=== PATIENT | female | born 1985 ===

== ENCOUNTER 2016-09-09 10:13 | Emergency (ER) | payer OTHER ==
[~2016-09-09] VITALS: Ht 160 cm; Wt 90.7 kg
[2016-09-09 11:34] LABS: ABSOLUTE BASOPHIL COUNT 0 /CUMM (0.0-0.2); ABSOLUTE EOSINOPHIL COUNT 0 /CUMM (0.0-0.7); ABSOLUTE GRANULOCYTE CT 4.7 /CUMM (1.4-6.5); ABSOLUTE LYMPH COUNT 1.4 /CUMM (1.2-3.4); ABSOLUTE MONOCYTE COUNT 0.3 /CUMM (0.10-0.60); BASOPHIL % 0.2 % (0.0-2.0); EOSINOPHIL % 0.7 % (0-5); GRANULOCYTE % 73.3 % (42.2-75.2); HEMATOCRIT 35.5 % (37-47); MEAN PLATELET VOLUME 8.3 FL (7.4-10.4); PLATELET COUNT 216 /CUMM (130-400); RBC DISTRIBUTION WIDTH 13.1 % (11.5-14.5); RED BLOOD CELL CT 3.78 /CUMM (4.20-5.40); WHITE BLOOD CELL COUNT 6.5 /CUMM (4.8-10.8)
--- NOTE | 2016-09-09 11:34 | ED GENERAL ADULT ---
History of Present Illness General Chief Complaint: Nausea, Vomiting, Diarrhea Stated Complaint: DIARRHEA X3 DAYS, 7 MONTHS PREG Source: patient Exam Limitations: no limitations Reconcile Medications Biotin (Unknown Strength) TABLET (Unknown Dose) PO DAILY SUPPLEMENT (Reported ) Cholecalciferol (Vitamin D3) 1,000 UNIT TABLET 1 TAB PO DAILY VITAMIN SUPPORT (Reported) Cyanocobalamin (Vitamin B-12) 1,000 MCG TABLET 1 TAB PO DAILY VITAMIN SUPPORT (Reported) Ondansetron (Zofran Odt) 4 MG TAB.RAPDIS 1 TAB PO Q6 PRN NAUSEA Vit No.130/Iron/FA ( Tablet) 27 MG IRON-800 MCG TABLET 1 TAB PO DAILY VITAMIN SUPPORT (Reported) Triage Note: PT TO ED C/O N/V X 3 DAYS. STARTED WITH DIARRHEA LAST NIGHT. PT IS 27 WEEKS . . DENIES ABD PAIN. OBGYN IS ROZINA WHO ADVISED PT TO COME TO ED FOR IVF AND FLU SWAB. PT DENIES VAGINAL BLEEDING/DISCHARGE. Triage Nurses Notes Reviewed? yes : No Patient currently breastfeeds: No HPI: This is a 31-year-old female who comes in for chief complaint of nausea vomiting and diarrhea. Note that patient is 27 weeks at this time. Last follow up with OBG was Aug 11, 2016 and she states that no abnormalitie were noted. She states that she is in her usual health until about 3 days ago. She had 3-4 episodes of vomiting and nausea. Yesterday, patient stated she also started having diarrhea. She describes it as profuse and watery at least 3-4 bowel movements last night. This a.m. she resumed vomiting. Denies any vaginal bleeding, or contractions. Patient denies any exotic injections, recent travel, smoking, drinking, or drug abuse. 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 Denies any other illnesses. Denies shortness of breath, chest pain, abdominal pain, or change in bladder or bowel movements. Sensitivity spoke with Dr. Handy, her DOG WALKER doctor, and he requested that she come in for further evaluation. (APRIL GUALLPA,MADHU) Vital Signs & Intake/Output Vital Signs & Intake/Output Vital Signs Date Time Temp Pulse Resp B/P B/P Pulse O2 O2 Flow FiO2 Mean Ox Delivery Rate 09/09 1223 97.9 80 16 103/60 98 Room Air 09/09 1019 98.1 95 20 117/74 98 Room Air Allergies Coded Allergies: venom-honey bee (Severe, SWELLING 09/09/16) orange (Intermediate, HIVES 09/09/16) tomato (Intermediate, HIVES 09/09/16) latex (RASH 09/09/16) Onset: Abrupt Duration: day(s): (3) Timing: multiple episodes today Injury Environment: home Severity: mild, moderate Associated Symptoms: n/v/d (STEFANI BEY MD) Past History Travel History Traveled to [place] past 21 day No Medical History Any Pertinent Medical History? none Surgical History Surgical History: none Psychosocial History What is your primary language Bolivian Tobacco Use: Never used ETOH Use: denies use Illicit Drug Use: denies illicit drug use Family History Hx Contributory? No Employment History Employment Employed (MADHU CHEN MD) Review of Systems Review of Systems Constitutional: Denies: chills, fever, weakness. EENTM: Reports: no symptoms. Respiratory: Denies: cough, short of breath, sputum production. Cardiovascular: Denies: chest pain, palpitations. GI: Reports: diarrhea, nausea, vomiting. Denies: abdominal pain, constipation, melena, bloody stool. Genitourinary: Denies: discharge, frequency, hesitation, pain. Musculoskeletal: Reports: no symptoms. Skin: Reports: no symptoms. (MADHU CHEN MD) Review of Systems Hematologic/Endocrine: Denies: bruising, bleeding, polyuria, polydipsia. Immunologic/Allergic: Denies: splenectomy. (STEFANI BEY MD) Physical Exam Physical Exam General Appearance: well developed/nourished, no apparent distress, alert, awake Head: atraumatic, normal appearance Eyes: Bilateral: normal appearance, PERRL, EOMI. Neck: normal inspection Respiratory: normal breath sounds, chest non-tender, no respiratory distress, quiet respiration, lungs clear Cardiovascular: regular rate/rhythm Gastrointestinal: soft, non-tender Back: normal inspection, normal range of motion Extremities: normal inspection Core Measures ACS in differential dx? No CVA/TIA Diagnosis: No Severe Sepsis Present: No Septic Shock Present: No (MADHU CHEN MD) Physical Exam Ears, Nose, Throat: normal pharynx, hearing grossly normal Peripheral Pulses: 2+ radial (R), 2+ radial (L) Neurologic/Psych: no motor/sensory deficits, awake, alert, oriented x 3 Skin: intact, normal color, warm/dry (SOTERO GUALLPA,STEFANI) Progress Differential Diagnoses I considered the following diagnoses in my evaluation of the patient: [viral gastroenteritis,toxin ingestion, hyperemesis gravidarum]. She got 1 L fluid and felt much better. If she tolerates PO intake then she can likely be dc and follow up with her OB-TECHNOLOGY ENGINEER in the next week Plan of Care: Orders Procedure Date/time Status URINALYSIS 09/09 1126 Complete CBC WITHOUT DIFFERENTIAL 09/09 1031 Complete BASIC ELECTROLYTES PLUS BUN&CR 09/09 1031 Complete Current Medications Sig/Brian Start time Last Medication Dose Stop Time Status Admin Sodium Chloride 1,000 ML BOLUS ONE 09/09 1130 AC 09/09 (Normal Saline 0.9%) 09/09 1329 1150 Laboratory Tests 09/09/16 1136: Urine Color YEL, Urine Clarity CLEAR, Urine pH 6.0, Ur Specific Dillard 1.020, Urine Protein NEG, Urine Ketones NEG, Urine Nitrite NEG, Urine Bilirubin NEG, Urine Urobilinogen 0.2, Ur Leukocyte Esterase NEG, Ur Microscopic EXAM NOT REQUIRED, Urine Hemoglobin NEG, Urine Glucose NEG 09/09/16 1128: Anion Gap 5, Estimated GFR > 60, BUN/Creatinine Ratio 14.0, CBC w Diff NO MAN DIFF REQ, RBC 3.78 L, MCV 94.0, MCH 32.0 H, RDW 13.1, MPV 8.3, Gran % 73.3, Lymphocytes % 21.4, Monocytes % 4.4, Eosinophils % 0.7, Basophils % 0.2, Absolute Granulocytes 4.7, Absolute Lymphocytes 1.4, Absolute Monocytes 0.3, Absolute Eosinophils 0, Absolute Basophils 0, PUBS MCHC 34.0 Patient feeling better after IV fluid bolus. heart rate checked in the ED. Heart rate 140s. Electrolytes within normal limits. She'll follow-up with Dr. Handy in the office. (SOTERO GUALLPA,STEFANI) Initial ED EKG: normal intervals Comments: 11:34 AM- Assessed pt. Will give one L of fluid and do UA, lab work. Will then re assess 12:01 AM- CBC, BEP, UA reviewed with no acute abnormalities noted other than slightly low HCT which could be attributed to her state (MADHU CHEN MD) Differential Diagnoses I considered the following diagnoses in my evaluation of the patient: (STEFANI BEY MD) Departure Departure Condition: Stable Referrals: LORENZO GUALLPA,ABDELRAHMAN Conn (PCP/Family) Departure Forms: Customer Survey General Discharge Information (MADHU CHEN MD) Departure Time of Disposition: 1250 Disposition: HOME OR SELF CARE Clinical Impression Primary Impression: Gastroenteritis Secondary Impressions: Additional Instructions: TAKE ZOFRAN NEEDED FOR NAUSEA. DRINK PLENTY OF FLUIDS. FOLLOW UP WITH DR HANDY IN THE OFFICE. RETURN NEEDED. Prescriptions: Current Visit Scripts Ondansetron (Zofran Odt) 1 TAB PO Q6 PRN NAUSEA #20 TAB Resident Co-Sign Statement Statement: ED Attending supervision documentation- [X] I saw and evaluated the patient. I have also reviewed all the pertinent lab results and diagnostic results. I agree with the findings and the plan of care as documented in the Resident's documentation. [X] I have reviewed the ED Record and agree with the Resident's documentation. [] Additions or exceptions (if any) to the Resident's note and plan are summarized below: [] (STEFANI BEY MD) Critical Care Note Critical Care Note Critical Care Time: non-applicable (MADHU CHEN MD)
[2016-09-09] MEDS ORDERED: PRENATAL TABLE1 EAC2 PO (11:45)
[2016-09-09] MEDS ORDERED: VITAMIN B-121000 MC3 PO (11:45)
[2016-09-09] MEDS ORDERED: BIOTIN1 M1 PO (11:46)
[2016-09-09] MEDS ORDERED: VITAMIN D31000 UNI2 PO (11:46)
[2016-09-09 12:23] VITALS: BP 103/60
[2016-09-09] MEDS ORDERED: ZOFRAN ODT4 M1 PO (12:27)
== END 2016-09-09 13:01 ==
LOC: ERH 10:13
PROVIDERS: Student in an Organized Health Care Education/Training Program
DX: O26.92 Pregnancy related conditions, unspecified, second trimester (principal); K52.9 Noninfective gastroenteritis and colitis, unspecified
CPT/HCPCS: 81003; 82436; 96360

== ENCOUNTER 2017-11-11 18:39 | Inpatient (IN) | payer OTHER ==
[~2017-11-11] VITALS: Ht 160 cm; Wt 97.5 kg
[~2017-11-11 18:39] MED LIST: B-121000 MC1 IM; BIOTIN1 M1 PO; DOCUSATE SODIU100 M3 PO; FERRALET 90 TA1 EACH PO; ONDANSETRON ODT4 M1 PO; PERCOCET 5-3251 EACH PO; PRENATAL TABLE1 EAC2 PO; PROAIR HFA8.5 GM INH; VITAMIN B-121000 MC3 PO; VITAMIN D1000 UNIT IM; VITAMIN D31000 UNI2 PO; ZOFRAN ODT4 M1 PO
[2017-11-11 19:06] VITALS: BP 100/60
[2017-11-11 19:12] LABS: ABSOLUTE BASOPHIL COUNT 0 /CUMM (0.0-0.2); ABSOLUTE EOSINOPHIL COUNT 0 /CUMM (0.0-0.7); ABSOLUTE GRANULOCYTE CT 5.2 /CUMM (1.4-6.5); ABSOLUTE LYMPH COUNT 1.7 /CUMM (1.2-3.4); ABSOLUTE MONOCYTE COUNT 0.4 /CUMM (0.10-0.60); BASOPHIL % 0.4 % (0.0-2.0); EOSINOPHIL % 0.5 % (0-5); GRANULOCYTE % 71.1 % (42.2-75.2); HEMATOCRIT 34.8 % (37-47); MEAN CORPUSCULAR HGB 30.3 PG (27.0-31.0); MEAN CORPUSCULAR HGB CONC 33.3 G/DL (33.0-37.0); MEAN CORPUSCULAR VOLUME 90.8 FL (81.0-99.0); MEAN PLATELET VOLUME 8.7 FL (7.4-10.4); PLATELET COUNT 222 /CUMM (130-400); RBC DISTRIBUTION WIDTH 14.6 % (11.5-14.5); RED BLOOD CELL CT 3.83 /CUMM (4.20-5.40); WHITE BLOOD CELL COUNT 7.3 /CUMM (4.8-10.8)
--- NOTE | 2017-11-11 20:13 | Labor & Delivery Summary ---
Delivery Summary Vaginal Delivery: Vaginal: vertex : : One previous LTCS and previous Station/Position at [facility]: NA Episiotomy/Lacerations: Episiotomy/Lacerations: none Placenta: Placenta: spontanteous, abnormal, true knot Anesthesia: none Apgars - 1 Min: 9 Apgars - 5 Min: 9 Additional Comments: After PCN dose went in patient had amniotomy done Meconium noted and Peds called. Pushed through intact perineum and LOT noted at delivery. No nuchal cord and left shoulder anterior Shoulders passed spontaneously. Cord clamped and did cry spontaneously and was given to mother. Apgars as listed True knot noted Cord gases sent Placenta passed spontaneously and intact. Uterus tonic with oxytocin EBL 300 cc US done after delivery and uterus intact Perineum intact. Female in good condition and mother in stable condition.
--- NOTE | 2017-11-11 20:55 | History & Physical ---
General Information and HPI MD Statement: I have seen and personally examined LEXA PASCAL and documented this H &P. The patient is a 32 year old female at 39 weeks and 1 days gestation who presented with a chief complaint of contractions since 4 pm today. Source of Information: patient, old records Exam Limitations: no limitations History of Present Illness: Patient called service today and stated that she was having contractions from 4 pm. On arrival patient was Rim and bulging bag. Denies vaginal bleeding Good movement States that her 11 month old is with HFMD (Coxsackie) Allergies/Medications Allergies: Coded Allergies: venom-honey bee (Severe, SWELLING 09/09/16) orange (Intermediate, HIVES 09/09/16) tomato (Intermediate, HIVES 09/09/16) latex (Mild, RASH 12/01/16) Home Med list Albuterol Sulfate (Proair Hfa) 90 MCG HFA.AER.AD 2 PUF INH Q4-6 PRN PRN asthma (Reported) Biotin (Unknown Strength) TABLET (Unknown Dose) PO DAILY SUPPLEMENT (Reported ) Cholecalciferol (Vitamin D3) (Vitamin D) 1,000 UNIT TABLET (Unknown Dose) IM Q 2 WEEKS VITAMIN SUPPORT (Reported) Cyanocobalamin (Vitamin B-12) (B-12) 1,000 MCG TABLET.ER (Unknown Dose) IM Q 2 WEEKS VITAMIN SUPPORT (Reported) Docusate Sodium 100 MG CAPSULE 100 MG PO BID PRN STOOL SOFTENER Iron Carb,Gl/FA/B12/C/Docusate (Ferralet 90 Tablet) 90 MG-1 MG-12 MCG-120 MG-50 MG TABLET 1 TAB PO DAILY ANEMIA (Reported) Ondansetron (Zofran Odt) 4 MG TAB.RAPDIS 1 TAB PO Q6 PRN NAUSEA Ondansetron (Ondansetron Odt) 4 MG TAB.RAPDIS 8 MG PO Q8P PRN NAUSEA/VOMITING Oxycodone HCl/Acetaminophen (Percocet 5-325 MG Tablet) 5 MG-325 MG TABLET 1 TAB PO Q4P PRN PAIN SCALE 4-6 (MODERATE) Vit No.130/Iron/FA ( Tablet) 27 MG IRON-800 MCG TABLET 1 TAB PO DAILY VITAMIN SUPPORT (Reported) Compliance With Home Meds: GOOD 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 Last Menstrual Period: 02/10/2017 Estimated Delivery Date: 11/17/2017 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: labor Past Pregnancies Past Pregnancies: 1 Date of Delivery: 08/1999 Gestational Age: 35 Weight: 3374 Type of Delivery: vaginal Complications: Stillbirth of twins due to twin twin transfusion Past Pregnancies: 2 Date of Delivery: 04/2003 Gestational Age: 36 Weight: 2892 Type of Delivery: vaginal Past Pregnancies: 3 Date of Delivery: 11/2003 Gestational Age: 39 Weight: 2863 Type of Delivery: vaginal Past Pregnancies: 4 Date of Delivery: 2003 Gestational Age: 26 Type of Delivery: vaginal Complications: Twin stillbirth secondary to twin twin transfusion Past Pregnancies: 5 Date of Delivery: 03/2009 Gestational Age: 39 Weight: 2863 Type of Delivery: Past Pregnancies: 6 Date of Delivery: 12/2016 Gestational Age: 37 Weight: 3147 Type of Delivery: vaginal Place of Delivery: [place] Complications: Medical History Blood Transfusion Hx: No Neurological: NONE EENT: NONE Cardiovascular: NONE Respiratory: asthma Gastrointestinal: NONE Hepatic: NONE Renal: NONE Musculoskeletal: NONE Psychiatric: NONE Endocrine: NONE Blood Disorders: NONE Cancer(s): NONE 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 Home Who Do You Live With? spouse, child Primary Language: Ugandan Smoking Status: Never Smoked ETOH Use: denies use Illicit Drug Use: denies illicit drug use Living Will? unknown Power of Scientologist/HCP? unknown Other Social History: NA Employment History Employment Unemployed Review of Systems Review of Systems Constitutional: Denies: no symptoms. EENTM: Denies: no symptoms. Cardiovascular: Denies: no symptoms. Respiratory: Denies: no symptoms. GI: Denies: no symptoms. Genitourinary: Denies: no symptoms. Musculoskeletal: Denies: no symptoms. Skin: Denies: no symptoms. Neurological/Psychological: Denies: no symptoms. Hematologic/Endocrine: Denies: no symptoms. Immunologic/Allergic: Denies: no symptoms. All Other Systems: Reviewed and Negative Date of LMP: 02/10/17 Post Menopausal: No Date of Last Pap Smear: 08/05/17 Exam & Diagnostic Data Last 24 Hrs of Vital Signs/I&O Vital Signs Date Time Temp Pulse Resp B/P B/P Pulse O2 O2 Flow FiO2 Mean Ox Delivery Rate 11/11 1906 100/60 Obstetric Exam Wgt Gained During : 6 lbs Pelvimetry: Gynecoid Dilation (cm): 9 Effacement (%): 100 Station: -3 Membranes: intact Fluid: Intact on admission Fundal Height (cm): 40 Multiple Gestation? No Contractions: Every 4-5 regular #1 - FHR Baseline: 140 Category: 1 Estimated Weight: 3000 grams Presentation: Cephalic Patient for Induction? No Physical Exam General Appearance Alert, Oriented X3, Cooperative, Mild Distress, Moderate Distress Skin No Rashes, No Significant Lesion HEENT Atraumatic Neck Supple Cardiovascular Regular Rate Lungs Normal Air Movement Abdomen Soft, No Tenderness Neurological Normal Gait, Normal Speech, Strength at 5/5 X4 Ext, Normal Tone, Sensation Intact Extremities No Edema Breasts Breast appear nl Reproductive (FEMALE) Normal female genitalia Pelvic (FEMALE) Appearance Normal Labs Blood Type & Rh: O positive Antibody Screen: negative Hct/Hgb & Platelets #1: 32.4/192 Hct/Hgb & Platelets #2: 34/212 Rubella: not in chart VDRL #1: negative VDRL #2: negative HbsAg: negative HIV #1: negative HIV #2 negative 1 Hr P Group B Strep: positive Initial Ultrasound: WNL Anatomy Ultrasound: WNL Ultrasound for EFW: 2279 grams on 10/19/2017 Genetic Testing: None listed Last 24 Hrs of Labs/Coy: Laboratory Tests 11/11/17 1855: CBC w Diff NO MAN DIFF REQ, RBC 3.83 L, MCV 90.8, MCH 30.3, MCHC 33.3, RDW 14.6 H, MPV 8.7, Gran % 71.1, Lymphocytes % 22.6, Monocytes % 5.4, Eosinophils % 0.5 , Basophils % 0.4, Absolute Granulocytes 5.2, Absolute Lymphocytes 1.7, Absolute Monocytes 0.4, Absolute Eosinophils 0, Absolute Basophils 0 Assessment/Plan Assessment/Plan: Patient is a 32 year old at term with complicated by obesity, history of bariatric surgery, history of LTCS with successful , vitamin deficiency of b12 and GBBS positive who arrived in labor at 9 cm dilated. 1) consent was obtained by Dr Lee and she expressed desire for as well. 2) GBBS positive. One dose of PCN was administered on arrival and peds contacted regarding only one dose to be given prior to delivery. 3) Recent coxsackie exposure. Informed peds. Follow up IGG but most likely to have antibodies given her age. 4) Meconium stained fluid. peds was notified. 5) Asthma. No acute issues and history of steroid use in 06/2017. Will provide MDI as needed Arrived at 9 cm and progressed to fully dilated. See delivery note. Chris's mother present at delivery. History of Chlamydia treated this with negative test of cure. Will need rubella testing as not in record. PPH precautions given grandmultiparity. As Ranked By This Provider Problem List: 1. Asthma affecting in third trimester 2. Previous delivery affecting , antepartum 3. History of bariatric surgery Core Measures Venous Thromboembolism VTE Risk Factors / No Mechanical VTE Prophylaxis d/t N/A MechProphylax Ordered No VTE Pharm Prophylaxis d/t Other Attending MD Review Statement Attending Statement Attending MD Statement: examined this patient, discussed w/nursing
[2017-11-12 08:26] LABS: ABSOLUTE BASOPHIL COUNT 0 /CUMM (0.0-0.2); ABSOLUTE EOSINOPHIL COUNT 0.1 /CUMM (0.0-0.7); ABSOLUTE MONOCYTE COUNT 0.5 /CUMM (0.10-0.60); BASOPHIL % 0.4 % (0.0-2.0); MEAN CORPUSCULAR HGB CONC 33.5 G/DL (33.0-37.0); WHITE BLOOD CELL COUNT 8.4 /CUMM (4.8-10.8)
--- NOTE | 2017-11-12 08:47 | PN- Post Delivery/GYN ---
Subjective Subjective: no c/o Review of Systems: neg Objective Last 24 Hrs of Vital Signs/I&O Vital Signs Date Time Temp Pulse Resp B/P B/P Pulse O2 O2 Flow FiO2 Mean Ox Delivery Rate 11/11 1906 100/60 Intake & Output 11/12 1600 11/12 0800 11/12 0000 Intake Total Output Total Balance Patient 215 lb Weight Physical Exam: ff ext nt Assessment/Plan Assessment/Plan s/p PPD1 stable CPM Problem List: 1.
[2017-11-12 09:00] LABS: ABSOLUTE GRANULOCYTE CT 5.5 /CUMM (1.4-6.5); ABSOLUTE LYMPH COUNT 2.3 /CUMM (1.2-3.4); EOSINOPHIL % 0.7 % (0-5); GRANULOCYTE % 65.4 % (42.2-75.2); MEAN CORPUSCULAR HGB 30.7 PG (27.0-31.0); MEAN CORPUSCULAR VOLUME 91.5 FL (81.0-99.0); MEAN PLATELET VOLUME 9.8 FL (7.4-10.4); PLATELET COUNT 152 /CUMM (130-400); RBC DISTRIBUTION WIDTH 14.3 % (11.5-14.5); RED BLOOD CELL CT 3.16 /CUMM (4.20-5.40)
[2017-11-12 09:36] LABS: HEMATOCRIT 28.9 % (37-47)
== END 2017-11-13 10:45 | DRG 775 ==
LOC: CBCO 18:39 → GNO 18:50
PROVIDERS: Obstetrics & Gynecology
PROC: 10E0XZZ Delivery of Products of Conception, External Approach (ICD-10-PCS; principal; 2017-11-11)
DX: O34.211 Maternal care for low transverse scar from previous cesarean delivery (principal); O77.0 Labor and delivery complicated by meconium in amniotic fluid; O62.3 Precipitate labor; Z3A.39 39 weeks gestation of pregnancy; Z37.0 Single live birth; Z98.84 Bariatric surgery status
CPT/HCPCS: GNOS; 86920; J3490; J7120